=== PATIENT | female | born 1940 | race Native Hawaiian/Other Pacific Islander ===

== ENCOUNTER 2016-12-20 10:19 | Outpatient (CLI) | payer OTHER ==
[~2016-12-20 10:19] MED LIST: ESCITALOPRAM10 MG PO; LEVO0.0218 PO; LIPITOR10 MG PO; MELOXICAM7.5 MG OR; METO50TA27 PO; OMEPRAZOLE20 M1 OR; RANI150T78 PO; TRAM50TA PO
[2016-12-20 12:16] LABS: PLATELET COUNT 212 K/uL (152-353)
[2016-12-20 12:49] LABS: POTASSIUM 3.9 mmol/L (3.6-5.2); SODIUM 139 mmol/L (136-145)
== END 2016-12-20 19:06 | disposition home or self-care (01) ==
LOC: LABW 10:19
PROVIDERS: Nurse Practitioner
DX: E11.9 Type 2 diabetes mellitus without complications (principal); E55.9 Vitamin D deficiency, unspecified; E78.00 Pure hypercholesterolemia, unspecified; I10 Essential (primary) hypertension; E03.8 Other specified hypothyroidism
CPT/HCPCS: 36415; 80053; 80061; 82043; 82306; 82570; 83036; 84443; 85027

== ENCOUNTER 2017-05-29 10:31 | Outpatient (CLI) | payer OTHER | END 2017-05-29 19:09 | disposition home or self-care (01) | LOC: RAD 10:31 | DX: M79.642 Pain in left hand (principal) ==

== ENCOUNTER 2017-06-22 11:25 | Outpatient (CLI) | payer OTHER ==
[2017-06-22] MEDS ORDERED: AMLODIPINE BESYLATE PO (11:57)
[2017-06-22] MEDS ORDERED: ASPIRIN 81 LOW81 MG PO (11:57)
[2017-06-22] MEDS ORDERED: ACET-689 PO (11:57)
[2017-06-22] MEDS ORDERED: NAMENDA10 MG OR (11:58)
[2017-06-22] MEDS ORDERED: MOBIC7.5 M1 PO (11:58)
[2017-06-22] MEDS ORDERED: ROPINIROLE1 MG PO (11:59)
[2017-06-22] MEDS ORDERED: ZANAFLEX2 MG PO (12:00)
[2017-06-22] MEDS ORDERED: METFORMIN HCL500 M1 PO (12:00)
[2017-06-22] MEDS ORDERED: POTA20TA4 PO (12:00)
[2017-06-22] MEDS ORDERED: APRODINE1 TAB OR (12:01)
== END 2017-06-22 11:29 | disposition short-term general hospital (02) ==
LOC: AMB 11:25
DX: R53.81 Other malaise (principal)
CPT/HCPCS: A0425; A0429

== ENCOUNTER 2017-06-22 11:30 | Emergency (ER) | payer OTHER ==
[~2017-06-22] VITALS: Ht 160 cm; Wt 75.8 kg
[2017-06-22 11:52] VITALS: TEMP 98.8
[2017-06-22] MEDS ORDERED: ASPIRIN 81 LOW81 MG PO (11:57)
[2017-06-22] MEDS ORDERED: AMLODIPINE BESYLATE PO (11:57)
[2017-06-22] MEDS ORDERED: ACET-689 PO (11:57)
[2017-06-22] MEDS ORDERED: MOBIC7.5 M1 PO (11:58)
[2017-06-22] MEDS ORDERED: NAMENDA10 MG OR (11:58)
[2017-06-22] MEDS ORDERED: ROPINIROLE1 MG PO (11:59)
[2017-06-22] MEDS ORDERED: ZANAFLEX2 MG PO (12:00)
[2017-06-22] MEDS ORDERED: POTA20TA4 PO (12:00)
[2017-06-22] MEDS ORDERED: METFORMIN HCL500 M1 PO (12:00)
[2017-06-22] MEDS ORDERED: APRODINE1 TAB OR (12:01)
[2017-06-22 13:12] LABS: PLATELET COUNT 203 K/uL (152-353)
[2017-06-22 13:21] LABS: POTASSIUM 3.8 mmol/L (3.6-5.2); SODIUM 136 mmol/L (136-145)
[2017-06-22 14:35] VITALS: BP 195/92
== END 2017-06-22 14:36 | disposition home or self-care (01) ==
LOC: ED 11:30
PROVIDERS: Internal Medicine
DX: B34.9 Viral infection, unspecified (principal); I10 Essential (primary) hypertension
CPT/HCPCS: 80053; 85027; 87081; 87804; 87880; 99283; J1940

== ENCOUNTER 2017-10-12 19:17 | Emergency (ER) | payer OTHER ==
[~2017-10-12] VITALS: Ht 172.7 cm; Wt 72.6 kg
[~2017-10-12 19:17] MED LIST changes: +ACET-689 PO; +AMLODIPINE BESYLATE PO; +APRODINE1 TAB OR; +ASPIRIN 81 LOW81 MG PO; +METFORMIN HCL500 M1 PO; +MOBIC7.5 M1 PO; +NAMENDA10 MG OR; +POTA20TA4 PO; +ROPINIROLE1 MG PO; +ZANAFLEX2 MG PO
[2017-10-12 19:50] VITALS: BP 169/75; TEMP 97.5
== END 2017-10-12 19:50 | disposition home or self-care (01) ==
LOC: ED 19:17
DX: S81.811A Laceration without foreign body, right lower leg, initial encounter (principal); W20.8XXA Other cause of strike by thrown, projected or falling object, initial encounter; Y92.89 Other specified places as the place of occurrence of the external cause
CPT/HCPCS: 99283

== ENCOUNTER 2018-01-12 21:53 | Emergency (ER) | payer OTHER ==
[~2018-01-12] VITALS: Ht 160 cm; Wt 90.7 kg
[2018-01-12 23:33] LABS: PLATELET COUNT 119 K/uL (152-353)
[2018-01-12 23:38] LABS: POTASSIUM 4.2 mmol/L (3.6-5.2)
[2018-01-13 00:32] VITALS: BP 132/66; TEMP 98.8
== END 2018-01-13 00:32 | disposition home or self-care (01) ==
LOC: ED 21:53
PROVIDERS: Family Medicine
DX: S39.012A Strain of muscle, fascia and tendon of lower back, initial encounter (principal); S76.012A Strain of muscle, fascia and tendon of left hip, initial encounter
CPT/HCPCS: 36415; 80053; 81000; 85027; 99283

== ENCOUNTER 2018-03-11 10:02 | Outpatient (CLI) | payer OTHER ==
[2018-03-11 11:17] LABS: PLATELET COUNT 204 K/uL (152-353)
[2018-03-11 11:23] LABS: POTASSIUM 3.9 mmol/L (3.6-5.2)
== END 2018-03-11 19:37 | disposition home or self-care (01) ==
LOC: LABW 10:02
PROVIDERS: Internal Medicine
DX: E11.9 Type 2 diabetes mellitus without complications (principal)
CPT/HCPCS: 36415; 80053; 80061; 81000; 82043; 82306; 82570; 83036; 84439; 84443; 84550; 85027

== ENCOUNTER 2018-07-16 09:16 | Outpatient (CLI) | payer OTHER ==
[2018-07-16] MEDS ORDERED: DONE5TAB PO (09:37)
[2018-07-16] MEDS ORDERED: TIROSINT25 MCG PO (09:40)
[2018-07-16] MEDS ORDERED: ESCITALOPRAM10 MG PO (09:42)
== END 2018-07-16 09:18 | disposition short-term general hospital (02) ==
LOC: AMB 09:16
DX: I10 Essential (primary) hypertension (principal)
CPT/HCPCS: A0425; A0427

== ENCOUNTER 2018-07-16 09:21 | Emergency (ER) | payer OTHER ==
[~2018-07-16] VITALS: Ht 160 cm; Wt 90.7 kg
[2018-07-16] MEDS ORDERED: DONE5TAB PO (09:37)
[2018-07-16] MEDS ORDERED: TIROSINT25 MCG PO (09:40)
[2018-07-16] MEDS ORDERED: ESCITALOPRAM10 MG PO (09:42)
[2018-07-16 10:50] LABS: POTASSIUM 3.6 mmol/L (3.6-5.2)
[2018-07-16 11:14] LABS: PLATELET COUNT 209 K/uL (152-353)
[2018-07-16 12:14] VITALS: BP 157/72; TEMP 97.8
== END 2018-07-16 12:15 | disposition home or self-care (01) ==
LOC: ED 09:21
PROVIDERS: Family Medicine
DX: I10 Essential (primary) hypertension (principal); G30.9 Alzheimer's disease, unspecified; F02.80 Dementia in other diseases classified elsewhere, unspecified severity, without behavioral disturbance, psychotic disturbance, mood disturbance, and anxiety
CPT/HCPCS: 80053; 81000; 85027; 99283

== ENCOUNTER 2018-09-01 06:35 | Emergency (ER) | payer OTHER ==
[~2018-09-01] VITALS: Ht 157.5 cm; Wt 73.9 kg
[~2018-09-01 06:35] MED LIST changes: +DONE5TAB PO; +TIROSINT25 MCG PO
[2018-09-01] MEDS ORDERED: AMLODIPINE BESYLATE PO (07:03)
[2018-09-01] MEDS ORDERED: OMEP40CA PO (07:05)
[2018-09-01 08:05] LABS: PLATELET COUNT 195 K/uL (152-353)
[2018-09-01 08:10] LABS: POTASSIUM 3.6 mmol/L (3.6-5.2); SODIUM 137 mmol/L (136-145)
[2018-09-01 10:10] VITALS: BP 154/86; TEMP 98.1
== END 2018-09-01 10:10 | disposition home or self-care (01) ==
LOC: ED 06:35
PROVIDERS: Internal Medicine
DX: J06.9 Acute upper respiratory infection, unspecified (principal); J30.89 Other allergic rhinitis; E86.0 Dehydration
CPT/HCPCS: 36415; 74022; 80053; 81000; 82550; 84484; 85027; 87502; 93005; 96360; 99284

== ENCOUNTER 2018-09-30 11:18 | Outpatient (CLI) | payer OTHER ==
[~2018-09-30 11:18] MED LIST changes: +OMEP40CA PO
[2018-09-30 11:50] LABS: PLATELET COUNT 235 K/uL (152-353)
== END 2018-09-30 20:42 | disposition home or self-care (01) ==
LOC: LABW 11:18
PROVIDERS: Internal Medicine
DX: E11.9 Type 2 diabetes mellitus without complications (principal)
CPT/HCPCS: 36415; 80053; 80061; 81000; 82043; 82570; 83036; 84439; 84443; 84550; 85027

== ENCOUNTER 2018-10-15 10:21 | Outpatient (CLI) | payer OTHER | END 2018-10-15 21:01 | disposition home or self-care (01) | LOC: CT 10:21 | DX: R26.81 Unsteadiness on feet (principal) ==

== ENCOUNTER 2019-01-12 15:45 | Emergency (ER) | payer OTHER ==
[~2019-01-12] VITALS: Ht 160 cm; Wt 76.2 kg
[2019-01-12 18:52] LABS: PLATELET COUNT 232 K/uL (152-353)
[2019-01-12 19:55] VITALS: BP 134/65; TEMP 97.7
== END 2019-01-12 19:55 | disposition home or self-care (01) ==
LOC: ED 15:45
PROVIDERS: Family Medicine
DX: M46.1 Sacroiliitis, not elsewhere classified (principal); M17.12 Unilateral primary osteoarthritis, left knee
CPT/HCPCS: 36415; 80053; 85027; 96372; 99283; J1885

== ENCOUNTER 2019-02-20 12:33 | Emergency (ER) | payer OTHER ==
[~2019-02-20] VITALS: Ht 160 cm; Wt 76.2 kg
[2019-02-20 13:07] LABS: PLATELET COUNT 337 K/uL (152-353)
[2019-02-20 13:24] LABS: POTASSIUM 3.5 mmol/L (3.6-5.2)
[2019-02-20 21:23] VITALS: BP 177/95
== END 2019-02-20 21:23 | disposition short-term general hospital (02) ==
LOC: ED 12:33
PROVIDERS: Emergency Medicine
PROC: 0T9B70Z Drainage of Bladder with Drainage Device, Via Natural or Artificial Opening (ICD-10-PCS; principal; 2019-02-20)
PROC: 0BH17EZ Insertion of Endotracheal Airway into Trachea, Via Natural or Artificial Opening (ICD-10-PCS; 2019-02-20)
DX: R06.03 Acute respiratory distress (principal); J81.1 Chronic pulmonary edema; I50.9 Heart failure, unspecified; R00.0 Tachycardia, unspecified; I45.81 Long QT syndrome; R41.0 Disorientation, unspecified; K42.9 Umbilical hernia without obstruction or gangrene; W18.39XA Other fall on same level, initial encounter; Y92.098 Other place in other non-institutional residence as the place of occurrence of the external cause
CPT/HCPCS: 36415; 36600; 51702; 80053; 81000; 82550; 82553; 82805; 83880; 84484; 85027; 85379; 93005; 94002; 94760; 96360; 96365; 96368; 96375; 99285; J0330; J2250; J3490; Q9963

== ENCOUNTER 2019-02-20 21:23 | Outpatient (CLI) | payer OTHER | END 2019-02-20 22:36 | disposition short-term general hospital (02) | LOC: AMB 21:23 | DX: I50.9 Heart failure, unspecified (principal) | CPT/HCPCS: A0425; A0427 ==